=== PATIENT | female | born 1975 | race Caucasian/White ===

== ENCOUNTER → 2021-01-05 | Outpatient (CLI) | payer BC ==
[~2021-01-05] MED LIST: CEPH500 PO; LEVSOD100 PO; PARO20 PO
== END | disposition home or self-care (01) ==
LOC: LAB SHORT 17:30 → LAB 17:30
DX: R31.9 Hematuria, unspecified (principal)
CPT/HCPCS: 87086

== ENCOUNTER 2023-12-25 08:19 | Observation (INO) | payer OTHER ==
[2023-12-25] VITALS (11 sets, daily range): BP systolic 86–129; BP diastolic 43–77
[~2023-12-25] VITALS: Ht 165.1 cm; Wt 131.5 kg
[2023-12-25] MEDS ORDERED: NS 1,000 ML IV SCH (08:25)
[2023-12-25] MEDS ORDERED: LOSA50 PO (08:59)
[2023-12-25] MEDS ORDERED: Ampicillin Sod/Sulbactam Sod 3 GM in NS 100 ML IV ONE (09:15)
[2023-12-25] MEDS ORDERED: Ondansetron HCl 2 MG / ML 2ML Vial IV PRN ×2 (09:15→15:40)
[2023-12-25 09:20] LABS: BASOPHILS ABSOLUTE AUTO 0.01 K/mm3 (0.00-0.23); BASOPHILS PERCENT AUTO 0 % (0-2); EOSINOPHILS ABSOLUTE AUTO 0.01 K/mm3 (0.00-0.68); EOSINOPHILS PERCENT AUTO 0 % (0-6); Hematocrit 36.1 % (33.0-51.0); Hemoglobin 11.9 g/dL (11.5-16.0); IMMATURE GRAN ABSOLUTE AUTO 0.01 K/mm3 (0.00-0.10); IMMATURE GRAN PERCENT AUTO 0 % (0-1); LYMPHOCYTES ABSOLUTE AUTO 0.25 K/mm3 (0.84-5.20); LYMPHOCYTES PERCENT AUTO 3 % (21-46); MONOCYTES ABSOLUTE AUTO 0.31 K/mm3 (0.16-1.47); MONOCYTES PERCENT AUTO 4 % (4-13); Mean Corpuscular HGB 28.7 pg (26.0-34.0); Mean Corpuscular Volume 87 fL (80-100); Mean Platelet Volume 11.1 fL (9.1-12.4); NEUTROPHILS ABSOLUTE AUTO 6.72 K/mm3 (1.96-9.15); NEUTROPHILS PERCENT AUTO 92 % (41-73); Platelet Count 157 K/mm3 (150-400); RDW Standard Deviation 41.1 fL (35.1-46.3); Red Blood Cell Count 4.15 M/mm3 (3.80-5.20); White Blood Cell Count 7.31 K/mm3 (4.00-11.30)
[2023-12-25 09:45] LABS: Albumin, Blood 3.7 g/dL (3.4-5.0); Albumin/Globulin Ratio 1.1 (0.8-1.8); Bilirubin, Total 0.8 mg/dL (0.1-1.0); Bun/Creatinine Ratio 14.4 (12.0-20.0); Calcium, Blood 9.1 mg/dL (8.5-10.1); Creatinine, Blood 0.56 mg/dL (0.40-1.00); Globulin, Blood 3.5 g/dL (2.2-4.0); Potassium, Blood 3.4 mmol/L (3.5-5.5); Total Protein, Blood 7.2 g/dL (6.4-8.2)
[2023-12-25 10:39] LABS: Source, Urine Clean Catch
[2023-12-25] MEDS ORDERED: Ketorolac Tromethamine 30mg Vial IV ONE (10:40)
[2023-12-25 10:44] LABS: Appearance, Urine Clear (Clear); Bilirubin, Urine Neg (Neg); Blood, Urine 2+ (Neg); Color, Urine Yellow (P-Yellow); Glucose Qualitative, Urine Neg (Neg); Ketones, Urine Neg (Neg); Leukocyte Esterase, Urine Neg (Neg); Nitrite, Urine Neg (Neg); Protein, Urine Neg (Neg); Urobilinogen, Urine NORM (Normal)
[2023-12-25 10:56] LABS: Bacteria Few /hpf; Red Blood Cells, Urine 0-2 /hpf (0-2); Squamous Epithelial Cells Mod /hpf (Few)
[2023-12-25 10:57] LABS: Amorphous Light (0-Heavy)
[2023-12-25] MEDS ORDERED: Lactated Ringer's 1,000 ML IV ONE (13:06)
[2023-12-25] MEDS ORDERED: HYDROmorphone HCl/Pf 1MG SYR IV PRN ×2 (13:25→15:35)
[2023-12-25] MEDS ORDERED: Bupivacaine 0.5% HCl 5 MG/ML 30MLVIAL ONE (13:37)
[2023-12-25] MEDS ORDERED: Midazolam HCl 1MG / ML 2ML Vial ONE (13:59)
[2023-12-25] MEDS ORDERED: Sugammadex Sodium 200 MG/2ML SDV (100 MG/ML) ONE ×2 (14:03→14:59)
[2023-12-25] MEDS ORDERED: FentaNYL Citrate 50 MCG/ML 2 ML Injection ONE (14:03)
[2023-12-25] MEDS ORDERED: propofoL 20 ML IV ONE ×2 (14:03)
[2023-12-25] MEDS ORDERED: Dexamethasone Sod Phos 10 MG/ML 1ML VIAL ONE (14:08)
[2023-12-25] MEDS ORDERED: Rocuronium Bromide 10 MG/ML 5ML Injection IV ONE (14:08)
[2023-12-25] MEDS ORDERED: Ondansetron HCl 2 MG / ML 2ML Vial ONE (14:08)
[2023-12-25] MEDS ORDERED: Phenylephrine HCl 100 MCG/ML-NS 10MLSYR (1MG/10ML) ONE ×2 (14:59→15:12)
[2023-12-25] MEDS ORDERED: DiphenhydrAMINE HCl 50 MG/ML 1ML Vial ONE (14:59)
[2023-12-25] MEDS ORDERED: Lactated Ringer's 1,000 ML IV SCH (15:40)
[2023-12-25] MEDS ORDERED: Acetaminophen 325 MG TABLET PO PRN (15:40)
[2023-12-25] MEDS ORDERED: Ampicillin Sod/Sulbactam Sod 3 GM in NS 100 ML IV SCH (16:00)
[2023-12-25] MEDS ORDERED: Ketorolac Tromethamine 15mg Vial IV PRN (16:00)
--- NOTE | 2023-12-25 17:28 | NUR ---
ARRIVAL/SHIFT SUMMARY PT ARRIVED FROM PACU ON A GURNEY, SLID OVER TO HER BED WITH 4 STAFF, PT ABLE TO STAND AT THE BEDSIDE TO REMOVE ADDITIONAL LINENS THAT WERE TRANSFERRED OVER DURING THE SLIDE TRANSFER. SHE WAS A/O AT ARRIVAL, ABLE TO ANSWER ALL QEUSTIONS APPROPRIATELY, DENIED PAIN, 3 ABD LAPS WITH GAUZE ALL C/D/I.
--- NOTE | 2023-12-25 19:36 | NUR ---
ASSUMPTION OF CARE: PATIENT IS ALERT AND ORIENTED X 4, POST OP DAY 0, PAIN CONTROLLED. MILD ABD TENDERNESS, SLOWER BOWEL TONES, NOT HYPOACTIVE. PATIETN HAS BEEN AMBULATING TO THE BATHROOM, AND HAS BEEN WALKING IN THE HALLS. DENIES NEED FOR PRN PAIN MEDICATIONS. FIRST DOSE OF AMPICILLIN INFUSED PRIOR TO ASSUMPTION. PATIETN ABLE TO MAKE NEEDS KNOWN. NO LONGER FEBRILE 98.6 WITH ORAL TEMPERATURE TAKEN AT 1930. TOLERATING CLEAR LIQUIDS. DENIES N/V. LAP SITES WITH NO DRAININAGE, NO CONCERN FROM THIS RN OR PATIENT AT THIS TIME.
[2023-12-26] MEDS ORDERED: Ampicillin Sod/Sulbactam Sod 3 GM in NS 100 ML IV SCH
[2023-12-26 03:35] VITALS: BP 151/84
--- NOTE | 2023-12-26 06:48 | NUR ---
EOS: PATIET WITH ALL 3 DOSES OF UNASYN. PATIENT TOLERATED WELL, NO ACUTE CONCERNS. PATIENT HAVING FLATULENCE, NO APPARENT DISTRESS. PATIENT IMPROVED THROUGH THE NIGHT. TOLERATING CLEAR LIQUIDS WELL.
[2023-12-26 07:24] VITALS: BP 148/88
[2023-12-26] MEDS ORDERED: ACET325 PO (08:59)
[2023-12-26] MEDS ORDERED: Enoxaparin 40 MG/0.4 ML SYR SC SCH (09:00)
[2023-12-26] MEDS ORDERED: Losartan Potassium 50 MG Tab PO SCH (09:00)
[2023-12-26] MEDS ORDERED: PARoxetine HCl 20 MG Tab PO SCH (09:00)
[2023-12-26] MEDS ORDERED: Levothyroxine Sodium 0.1 MG Tab PO SCH (09:00)
--- NOTE | 2023-12-26 13:22 | NUR ---
DISCHARGE SUMMARY POD1 LAP APPY, A/OX4, VSS, TOLERATING REGULAR DIET, AMBULATES INDEPENDENTLY, LAP SITES DRESSED WITH GAUZE/TEGADERM C/D/I, VOIDING WELL, DENIES PAIN. DISCUSSED DISCHARGE INSTRUCTIONS INCLUDING HOME CARE, MEDICATIONS, AND FOLLOW UP APPOINTMENTS, IV ACCESS REMVOED JUST BEFORE DISCHARGE INSTRUCTIONS. PT ESCORTED OUT VIA WC TO PRIVATE AUTO TO GO HOME.
== END 2023-12-26 13:00 | disposition home or self-care (01) ==
LOC: ER 08:19 → SURS 08:20
PROVIDERS: Emergency Medicine; ADMIT Surgery
PROC: 0DTJ4ZZ Resection of Appendix, Percutaneous Endoscopic Approach (ICD-10-PCS; principal; 2023-12-25 14:00)
DX: K35.891 Other acute appendicitis without perforation, with gangrene (principal); K42.9 Umbilical hernia without obstruction or gangrene; E66.01 Morbid (severe) obesity due to excess calories; Z68.42 Body mass index [BMI] 45.0-49.9, adult; I10 Essential (primary) hypertension; E03.9 Hypothyroidism, unspecified; Z79.899 Other long term (current) drug therapy
CPT/HCPCS: 74177; 80053; 81001; 83690; 84702; 85025; 88304; 96365-59; 96375-59; 99285-25; G0378; J0295; J1100; J1170; J1200; J1650; J1885; J2250; J2371; J2405; J2704; J3010; J7030; J7120; Q9967

== ENCOUNTER 2024-08-25 16:15 | Emergency (ER) | payer OTHER ==
[~2024-08-25] VITALS: Ht 165.1 cm; Wt 136.1 kg
[~2024-08-25 16:15] MED LIST changes: +ACET325 PO; +LOSA50 PO
[2024-08-25] MEDS ORDERED: Aspirin 325 MG Tab PO ONE ×2 (16:30→18:15)
[2024-08-25 16:57] LABS: BASOPHILS ABSOLUTE AUTO 0.02 K/mm3 (0.00-0.23); BASOPHILS PERCENT AUTO 0 % (0-2); EOSINOPHILS ABSOLUTE AUTO 0.08 K/mm3 (0.00-0.68); EOSINOPHILS PERCENT AUTO 1 % (0-6); Hematocrit 31.9 % (33.0-51.0); Hemoglobin 10.1 g/dL (11.5-16.0); IMMATURE GRAN ABSOLUTE AUTO 0.01 K/mm3 (0.00-0.10); IMMATURE GRAN PERCENT AUTO 0 % (0-1); LYMPHOCYTES ABSOLUTE AUTO 1.94 K/mm3 (0.84-5.20); LYMPHOCYTES PERCENT AUTO 33 % (21-46); MONOCYTES ABSOLUTE AUTO 0.44 K/mm3 (0.16-1.47); MONOCYTES PERCENT AUTO 8 % (4-13); Mean Corpuscular HGB 25.6 pg (26.0-34.0); Mean Corpuscular HGB Conc 31.7 g/dL (31.5-36.5); Mean Corpuscular Volume 81 fL (80-100); Mean Platelet Volume 10.6 fL (9.1-12.4); NEUTROPHILS ABSOLUTE AUTO 3.35 K/mm3 (1.96-9.15); NEUTROPHILS PERCENT AUTO 57 % (41-73); Platelet Count 217 K/mm3 (150-400); RDW Coefficient Variation 15.9 % (11.7-14.2); RDW Standard Deviation 47.2 fL (35.1-46.3); Red Blood Cell Count 3.95 M/mm3 (3.80-5.20); White Blood Cell Count 5.84 K/mm3 (4.00-11.30)
[2024-08-25 17:23] LABS: Albumin, Blood 3.5 g/dL (3.4-5.0); Bilirubin, Total 0.4 mg/dL (0.1-1.0); Bun/Creatinine Ratio 19.2 (12.0-20.0); Calcium, Blood 9.5 mg/dL (8.5-10.1); Creatinine, Blood 0.68 mg/dL (0.40-1.00); Globulin, Blood 3.6 g/dL (2.2-4.0); Potassium, Blood 3.5 mmol/L (3.5-5.5); Total Protein, Blood 7.1 g/dL (6.4-8.2)
[2024-08-25 18:20] VITALS: BP 149/109
== END 2024-08-25 19:25 | disposition home or self-care (01) ==
LOC: ER 16:15
PROVIDERS: Emergency Medicine
DX: R07.89 Other chest pain (principal); I10 Essential (primary) hypertension; Z79.899 Other long term (current) drug therapy
CPT/HCPCS: 71045; 80053; 84484; 85025; 93005; 93010; 99285-25; A9270